=== PATIENT | male | born 1985 | race Caucasian/White ===

== ENCOUNTER 2020-07-08 13:24 | Emergency (ER) | payer MEDICAID, OTHER, SELFPAY ==
[~2020-07-08] VITALS: Ht 193 cm; Wt 92.8 kg
[2020-07-08 13:27] VITALS: BP 129/93
--- NOTE | 2020-07-08 14:41 | NUR ---
PT AMBULATED STEADILY TO ROOM FROM LOBBY USING CANE. FRIEND ACCOMPANIES. PT REPORTS L KNEE PAIN/SWELLING X TWO DAYS. HX OF SAME. "I THINK MY ACL IS MESSED UP". DENIES DISTAL NUMBNESS/TINGLING/SENSATION CHANGE
[2020-07-08] MEDS ORDERED: KETOROLAC 30 MG/1 ML IM ONE (15:00)
[2020-07-08] MEDS ORDERED: KETOROLAC 30 MG/1 ML ONE (15:28)
--- NOTE | 2020-07-08 16:08 | NUR ---
IMMOBILIZER IN PLACE BY TECH. +DISTAL CMS. DC EDUCATION PROVIDED, PT DEMONSTRATES UNDERSTANDING. PT AMBULATED STEADILY TO DC WITH RN USING CANE. FRIEND TO TRANSPORT PT HOME.
== END 2020-07-08 16:10 | disposition home or self-care (01) ==
LOC: ED 14:20
DX: M25.562 Pain in left knee (principal); M17.12 Unilateral primary osteoarthritis, left knee; M79.89 Other specified soft tissue disorders
CPT/HCPCS: 29505; 73564; 96372; 99283; J1885

== ENCOUNTER 2020-07-26 14:20 | Emergency (ER) | payer SELFPAY ==
[~2020-07-26] VITALS: Ht 193 cm; Wt 97.4 kg
--- NOTE | 2020-07-26 15:24 | NUR ---
PT C/O TOOTH PAIN THAT STARTED YESTERDAY EVENING. HE FLOSSED HIS TEETH AND A CHUNK CAME OFF. PT HAD A CROWN THERE BEFORE BUT IT FELL OFF AWHILE AGO. PAIN 02/27.
[2020-07-26 15:56] VITALS: BP 123/73
--- NOTE | 2020-07-26 15:58 | NUR ---
PT AND SPOUOSE REC'VD DISCHARGE INSTRUCTIONS AND EDUCATION. PT AND SPOUSE HAD NO FURTHER QUESITONS. PT AMBULATED TO DC AREA, STEADY GAIT.
== END 2020-07-26 16:06 | disposition home or self-care (01) ==
LOC: ED 16:00
DX: K02.9 Dental caries, unspecified (principal); K08.89 Other specified disorders of teeth and supporting structures; F17.290 Nicotine dependence, other tobacco product, uncomplicated
CPT/HCPCS: 99283

== ENCOUNTER 2020-12-20 19:07 | Emergency (ER) | payer SELFPAY ==
[~2020-12-20] VITALS: Ht 193 cm; Wt 88.0 kg
[2020-12-20 19:29] VITALS: BP 127/87
== END 2020-12-20 19:59 | disposition home or self-care (01) ==
LOC: ED 19:27
DX: B35.4 Tinea corporis (principal); M19.90 Unspecified osteoarthritis, unspecified site
CPT/HCPCS: 99283

== ENCOUNTER 2020-12-24 22:42 | Emergency (ER) | payer SELFPAY ==
[~2020-12-24] VITALS: Ht 193 cm; Wt 90.4 kg
[2020-12-24 22:46] VITALS: BP 112/83
== END 2020-12-24 23:35 | disposition home or self-care (01) ==
LOC: ED 23:19
DX: K64.8 Other hemorrhoids (principal); K62.5 Hemorrhage of anus and rectum; M19.90 Unspecified osteoarthritis, unspecified site; F17.210 Nicotine dependence, cigarettes, uncomplicated
CPT/HCPCS: 99283; 99406

== ENCOUNTER 2021-04-07 13:27 | Emergency (ER) | payer MEDICAID ==
[~2021-04-07] VITALS: Ht 193 cm; Wt 93.1 kg
[2021-04-07 13:31] VITALS: BP 109/71
--- NOTE | 2021-04-07 14:45 | NUR ---
agricultural scientist completed.
--- NOTE | 2021-04-07 14:53 | NUR ---
PA back to bedside after discussion with ERP about Gabapentin for ETOH detox. Speaking with pt about suggested plan of care.
[2021-04-07] MEDS ORDERED: LORazepam 1MG TABLET ONE (14:59)
[2021-04-07] MEDS ORDERED: LORazepam 1MG TABLET PO ONE (15:00)
--- NOTE | 2021-04-07 15:01 | NUR ---
Medication given as ordered.
--- NOTE | 2021-04-07 15:27 | NUR ---
No change in tremors or anxiety after medical cash poster due to not enough time since admin, but pt being d/c'd now.
== END 2021-04-07 15:33 | disposition home or self-care (01) ==
LOC: ED 15:00
DX: F10.239 Alcohol dependence with withdrawal, unspecified (principal); Y90.0 Blood alcohol level of less than 20 mg/100 ml; R45.4 Irritability and anger; Z76.0 Encounter for issue of repeat prescription; F17.210 Nicotine dependence, cigarettes, uncomplicated
CPT/HCPCS: 99281; 99406